=== PATIENT | male | born 1985 | race Caucasian/White ===

== ENCOUNTER 2016-06-15 11:29 | Emergency (ER) | payer SELFPAY ==
[~2016-06-15] VITALS: Ht 165.1 cm; Wt 73.9 kg
[~2016-06-15 11:29] MED LIST: ACET-789 PO; AZIT250T PO; AZIT500T PO; BENZ-13 PO; D-ME118S7 PO; DOXY100C42 PO; FAMO20TA5 PO; NAPR-243 PO; NAPR-689 PO; ONDA-43 PO; OSLT75C PO; PRD20T PO; PRM5C60 TP; PROM5SYR PO; RT-ALBUINH IH; TRAM50TA2 PO
--- OUTSIDE RECORDS SUMMARY | 2016-06-15 11:36 | XMS REPORT | Continuity of Care Document ---
Author Author [facility] Organization [facility] Address Unknown Phone Unavailable Care Team Providers Care Communications Tech Name Role Phone NO, LOCAL PHYSICIAN PCP Unavailable Insurance Providers Payer Name Policy Number Subscriber Name Relationship Unknown Tai Santoyo 20 Self / Same As Patient Advance Directives Directive Response Recorded Date/Time Advance Directives No 02/02/16 3:39pm Organ Donor Yes 02/02/16 3:39pm Resuscitation Status Full Code 02/02/16 3:39pm Chief Complaint and Reason for Visit Chief Complaint Cough/Cold/Flu Symptoms Reason for Visit Bronchitis Problems Active Problems Medical Problem Onset Date Status Abdominal pain Unknown Acute Acute chest wall pain Unknown Acute Acute chest wall pain Unknown Acute Bronchitis Unknown Acute Gastritis Unknown Acute Nausea Unknown Acute Non-compliance Unknown Acute Scabies infestation Unknown Acute Ulnar neuropathy Unknown Acute Medications Current Home Medications Medication Dose Units Route Directions Days/Qty Instructions Start Date Promethazine Hcl/Codeine 5 Ml 5 Ml Oral Every 4HRS as needed for Cough 120 02/02/16 Azithromycin 250 Mg 250 Mg Oral As Directed 6 TAKE 2 TABLETS TODAY, THEN TAKE 1 TABLET DAILY FOR 4 MORE DAYS 02/02/16 Albuterol Sulfate 6.7 Gm 2 Puff Inhalation Every 4HRS as needed for Shortness Of Breath 1 02/02/16 Past Home Medications Medication Directions Ordered Status Oseltamivir Phosphate 75 Mg Cap, 75 Mg Oral Twice A Day 07/26/11 Discontinued Ondansetron 8 Mg Tab, 8 Mg Oral Every 6 Hours as needed for Nausea/Vomiting 07/01/13 Discontinued Tramadol Hcl 50 Mg Tablet, 50 Mg Oral Every 4HRS as needed for Pain 07/01/13 Discontinued Famotidine (Pepcid) 20 Mg Tablet, 1 Each Oral Twice A Day 07/01/13 Discontinued Permethrin 60 Gm Tube, 0 Topical As Directed 01/29/14 Discontinued Naproxen 500 Mg Tablet, 1 Tab Oral Twice A Day 08/22/14 Discontinued Naproxen 500 Mg Tablet, 1 Each Oral Twice A Day as needed for Pain 11/27/14 Discontinued Doxycycline Monohydrate 100 Mg Capsule, 100 Mg Oral Twice A Day 01/15/15 Discontinued D-Methorphan Hb/Prometh Hcl 118 Ml Syrup, 1-2 Tsp Oral Every 4HRS for Cough 01/17/15 Discontinued Benzonatate 100 Mg Capsule, 1-2 Tab Oral Three Times A Day for Cough Discontinued Azithromycin 500 Mg Tablet, 500 Mg Oral Daily 01/17/15 Discontinued D-Methorphan Hb/Prometh Hcl 118 Ml Syrup, 1-2 Tsp Oral Every 4HRS for Cough 01/17/15 Discontinued Benzonatate 100 Mg Capsule, 1-2 Tab Oral Three Times A Day for Cough Discontinued Azithromycin 500 Mg Tablet, 500 Mg Oral Daily 01/17/15 Discontinued Prednisone 20 Mg Tab, 20 Mg Oral As Directed 02/27/15 Discontinued Acetaminophen With Codeine 1 Each Tablet, 1 Each Oral Every 4HRS as needed for Cough 02/27/15 Discontinued Social History Social History Problem Response Recorded Date/Time Alcohol Use Occasionally Uses 02/27/2015 1:55pm Recreational Drug Use No 02/27/2015 1:55pm Recent Foreign Travel No 02/02/2016 3:30pm Recent Infectious Disease Exposure No 02/02/2016 3:30pm Sexually Transmitted Disease No 02/02/2016 3:39pm HIV/AIDS No 02/02/2016 3:39pm Smoking Status Current Someday Smoker 02/02/2016 3:39pm Do you dip or chew tobacco? No 02/27/2015 1:55pm Recent Hopitalizations No 02/02/2016 3:39pm Sexually Transmitted Disease No 02/02/2016 3:39pm Query Response Start Date Stop Date Smoking Status Current Someday Smoker Hospital Discharge Instructions No hospital discharge instructions. Plan of Care Discharge Date 02/02/16 4:41pm Disposition 01 HOME, SELF-CARE Condition at Discharge Stable Instructions/Education Provided Acute Bronchitis (ED) Forms Provided Work Release Form Prescriptions See Medication Section Referrals NO,LOCAL PHYSICIAN - Primary Care Physician Additional Instructions/Education 1. Return to ER for any concerns 2. Medication as directed 3. Follow-up with your doctor next week 3. All discharge instructions reviewed with patient and/or family. Voiced understanding. Functional Status No functional status results. Allergies, Adverse Reactions, Alerts Allergen Type Severity Reaction Status Last Updated clavulanic acid ([id number]) Allergy Unknown Active 11/27/13 amoxicillin ([id number]) Allergy Unknown Active 11/27/13 Immunizations No immunization records. Vital Signs Acute Vital Signs Vital Response Date/Time Temperature (Fahrenheit) 98.5 degrees F (97.6 - 99.5) 02/02/2016 3:30pm Temperature (Calculated Celsius) 36.86622 degrees C (36.4 - 37.5) 02/02/2016 3:30pm Temperature Source Temporal 02/02/2016 3:30pm Pulse Rate (adult) 67 bpm (60 - 90) 02/02/2016 3:30pm Respiratory Rate 14 bpm (12 - 24) 02/02/2016 3:30pm Blood Pressure 140/91 mm Hg 02/02/2016 3:30pm Blood Pressure Mean 107 mm Hg 02/02/2016 3:30pm Pain Numeric Pain Scale 7 02/02/2016 3:30pm Height (Feet) 5 feet 02/02/2016 3:30pm Height (Inches) 6 inches 02/02/2016 3:30pm Height (Calculated Centimeters) 167.732090 cm 02/02/2016 3:30pm Weight (Pounds) 152 pounds 02/02/2016 3:30pm Weight (Calculated Kilograms) 68.400526 kilograms 02/02/2016 3:30pm Capillary Refill Capillary Refill Less Than 3 Seconds 02/02/2016 3:30pm Height 5 ft 6 in Weight 152 lb Body Mass Index 24.5 kg/m^2 Results No known relevant diagnostic tests, laboratory data and/or discharge summary. Procedures No known history of procedures. Encounters Encounter Location Arrival/Admit Date Discharge/Depart Date Attending Provider Departed Emergency Room [facility] 02/02/16 3:20pm 02/01 4:41pm EMY SELLERS APRN Recent Diagnosis
--- NOTE | 2016-06-15 11:51 | ED Cough/URI ---
General Chief Complaint: Cough/Cold/Flu Symptoms Stated Complaint: COUGH,SOB Nursing Triage Note: pt reports cough/cold x 2 weeks but has not improved. Source: patient Exam Limitations: no limitations History of Present Illness Time seen by provider: 11:51 Initial Comments Patient presents to the ED with c/o cough, chest congestion x2 wks. reports intermittent SOB and wheezing. Mild nasal congestion. Timing/Duration: constant, other (2 wks) Severity/Quality: productive cough Prior Episodes/Possible Cause: no prior episodes Modifying Factors: Worse With Coughing, Worse With Other (no improvement with mucinex or OTC herbal meds for congestion.) Allergies and Home Medications Allergies Coded Allergies: amoxicillin (Unverified Allergy, Unknown, 11/27/13) clavulanic acid (Unverified Allergy, Unknown, 11/27/13) Home Medications Albuterol Sulfate 6.7 Gm Hfa.aer.ad #1 2 PUFF IH Q4H PRN PRN SHORTNESS OF BREATH Prescribed by: EMY SELLERS on 02/02/16 1611 Azithromycin 250 Mg Tablet #6 250 MG PO UD TAKE 2 TABLETS TODAY, THEN TAKE 1 TABLET DAILY FOR 4 MORE DAYS Prescribed by: EMY SELLERS on 02/02/16 1611 Prednisone 20 Mg Tab #10 40 MG PO DAILY Prescribed by: KATRINA CUBA on 04/27/16 1232 Promethazine HCl/Codeine 5 Ml Syrup #120 5 ML PO Q4H PRN PRN COUGH Prescribed by: EMY SELLERS on 02/02/16 1611 Tramadol HCl 50 Mg Tablet #20 50 MG PO Q4H PRN PRN PAIN Prescribed by: KATRINA CUBA on 04/27/16 1232 Constitutional: No chills, No diaphoresis, No dizziness, No fever, malaise EENTM: nose congestionNo ear pain, No nose pain, No throat pain, No throat swelling Respiratory: see HPI coughNo dyspnea on exertion, No orthopnea, phlegm short of breathNo stridor, wheezing Cardiovascular: no symptoms reported Gastrointestinal: no symptoms reported Genitourinary: no symptoms reported Musculoskeletal: no symptoms reported Skin: no symptoms reported Psychiatric/Neurological: No Symptoms Reported Immunological/Allergic: no symptoms reported All Other Systems Reviewed Negative Unless Noted: Yes (Negative excepted noted.) Past Fndwzyi-Lmijbi-Grdctz Hx Patient Social History Alcohol Use: Occasionally Uses Recreational Drug Use: No Smoking Status: Current Someday Smoker Type Used: Cigars Recent Foreign Travel: No Contact w/Someone Who Travel: No Recent Infectious Disease Expo: No Recent Hopitalizations: No Seasonal Allergies Seasonal Allergies: No Surgeries HX Surgeries: Yes (RIGHT HAND SURGERY/LACERATION REPAIR) Surgeries: Orthopedic Respiratory Hx Respiratory Disorders: No Cardiovascular Hx Cardiac Disorders: No Neurological Hx Neurological Disorders: No Reproductive System Hx Reproductive Disorders: No Sexually Transmitted Disease: No HIV/AIDS: No Genitourinary Hx Genitourinary Disorders: No Gastrointestinal Hx Gastrointestinal Disorders: No Musculoskeletal Hx Musculoskeletal Disorders: No Endocrine Hx Endocrine Disorders: No HEENT HX ENT Disorders: No Cancer Hx Cancer: No Psychosocial Hx Psychiatric Problems: No Integumentary HX Skin/Integumentary Disorder: No Blood Transfusions Hx Blood Disorders: No Reviewed Nursing Assessment Reviewed/Agree w Nursing PMH: Yes Family Medical History Significant Family History: No Pertinent Family Hx Physical Exam Vital Signs Vital Sign - Last 12Hours 06/15/16 11:43 Temp 97.9 Pulse 76 Resp 20 B/P 148/88 Pulse Ox 97 Capillary Refill : Less Than 3 Seconds General Appearance: WD/WN no apparent distress HEENT: PERRL/EOMI TMs normal pharyngeal erythema other ((+) nasal congestion) Neck: supple normal inspection Respiratory: lungs clear normal breath sounds no respiratory distress no accessory muscle use Cardiovascular: regular rate, rhythm no murmur Gastrointestinal: non tender softNo distended Neurologic/Psychiatric: alert normal mood/affect oriented x 3 Skin: normal color warm/dry Progress/Results/Core Measures Results/Orders Vital Signs/I&O Vital Sign - Last 12Hours 06/15/16 11:43 Temp 97.9 Pulse 76 Resp 20 B/P 148/88 Pulse Ox 97 Blood Pressure Mean: 108 Departure Impression Impression: Primary Impression: Acute bronchitis Qualified Code: J20.9 - Acute bronchitis, unspecified Disposition: 01 HOME, SELF-CARE Condition: Improved Departure-Patient Inst. Decision time for Depature: 12:05 Referrals: NO,LOCAL PHYSICIAN (PCP/Family) Primary Care Physician Patient Instructions: Acute Bronchitis, Adult (DC) Add. Discharge Instructions: All discharge instructions reviewed with patient and/or family. Voiced understanding. Medications as instructed. Tylenol Extra Strength over-the- counter as directed for pain or fever. Ibuprofen 800 mg by mouth every 8 hours as needed for pain or fever. Cool humidifier. Tuny-dpq-ojaltvc decongestants, antihistamines, and cough suppressants as needed. Follow-up with your family practitioner of choice if no improvement in symptoms. Return to the emergency department for worsened symptoms or any other concerns. Scripts Azithromycin (Zithromax)250 Mg Oxvefx121 Mg PO UD #6 TAB Ref 0 TAKE 2 TABLETS TODAY, THEN TAKE 1 TABLET DAILY FOR 4 MORE DAYS Prov:KATRINA CUBA 06/15/16 Prednisone 20 Mg Tab40 Mg PO DAILY #10 TAB Ref 0 Prov:KATRINA CUBA 06/15/16 Albuterol Sulfate (Proventil Hfa)6.7 Gm Hfa.aer.ad2 Puff IH Q4H PRN SHORTNESS OF BREATH #1 EA Ref 0 Prov:KATRINA CUBA 06/15/16 KATRINA CUBA Jun 15, 2016 11:51
[2016-06-15] MEDS ORDERED: AZIT250T PO (12:07)
[2016-06-15] MEDS ORDERED: PRD20T PO (12:07)
[2016-06-15] MEDS ORDERED: RT-ALBUINH IH (12:07)
[2016-06-15 12:13] VITALS: BP 120/65
== END 2016-06-15 12:12 | disposition home or self-care (01) ==
LOC: EDUNIT# 11:29 → ER 11:32
DX: J20.9 Acute bronchitis, unspecified (principal); F17.210 Nicotine dependence, cigarettes, uncomplicated
CPT/HCPCS: 99282

== ENCOUNTER 2016-08-18 11:44 | Emergency (ER) | payer SELFPAY ==
[~2016-08-18] VITALS: Ht 167.6 cm; Wt 72.6 kg
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
--- NOTE | 2016-08-18 12:59 | Diagnostic Imaging Report ---
EXAMINATION: Three views of the right wrist. INDICATION: Fall. FINDINGS: There is no fracture, dislocation, or radiopaque foreign body. The joint alignment is satisfactory. Ulna minus variation is seen. IMPRESSION: There is ulna minus variation seen. No acute process. Dictated by: Dictated on workstation # [id number]
[2016-08-18] MEDS ORDERED: NAPR500T3 PO (13:07)
[2016-08-18 13:11] VITALS: BP 140/82
== END 2016-08-18 13:12 | disposition home or self-care (01) ==
LOC: EDUNIT# 11:44 → ER 11:47
DX: S63.501A Unspecified sprain of right wrist, initial encounter (principal); F17.210 Nicotine dependence, cigarettes, uncomplicated; W17.89XA Other fall from one level to another, initial encounter; Y99.8 Other external cause status
CPT/HCPCS: 73110; 99282